=== PATIENT | male | born 1960 | race Caucasian/White ===

== ENCOUNTER → 2021-10-21 11:29 | Outpatient (CLI) | payer BC, SELFPAY ==
--- NOTE | ~2021-10-21 | XR_ITS ---
XR knee LT 3V DATE: 10/21/2021 12:16 INDICATION: Left knee pain TECHNIQUE: AP, lateral, sunrise views COMPARISON: None FINDINGS: There is mild enthesopathy of the patella at the insertions of the quadriceps and patellar tendons. Slight periarticular spurring of the patella. No fracture or dislocation or joint effusion, radiopaque intra-articular loose body or chondrocalcino sis. Joint spaces appear relatively preserved. No fracture or dislocation or joint effusion. No periosteal reaction or bone destruction. IMPRESSION: Mild osteoarthritis Reviewed, dictated and finalized at location A. IMPRESSION: Mild osteoarthritis
--- NOTE | ~2021-10-21 | XR_ITS ---
XR shoulder LT min 2V DATE: 10/21/2021 12:16 INDICATION: Left shoulder pain TECHNIQUE: 4 views COMPARISON: None FINDINGS: There is diffuse osteopenia. No fracture or dislocation, periosteal reaction or bone destruction or abnormal soft tissue calcifica tion of the left shoulder. IMPRESSION: Osteopenia Reviewed, dictated and finalized at location A. IMPRESSION: Osteopenia
== END ==
PROVIDERS: PCP Emergency Medicine; Visit Provider Emergency Medicine
DX: M17.12 Unilateral primary osteoarthritis, left knee (principal); M85.812 Other specified disorders of bone density and structure, left shoulder
CPT/HCPCS: 73030; 73562

== ENCOUNTER 2023-03-02 12:26 | Outpatient (CLI) | payer OTHER, SELFPAY ==
--- NOTE | ~2023-03-02 | US_ITS ---
EXAMINATION:US venous doppler LE RT INDICATION:Right leg pain TECHNIQUE: Multiple grayscale, color flow and Doppler images of the right lower extremity deep venous systems were obtained and reviewed. COMPARISON:No prior studies for comparison. FINDINGS: The common femoral, superficial femoral and popliteal veins demonstrate normal respiratory variation, augmentation and compressibility. Color flow is also seen within the posterior tibial, pe roneal, greater saphenous and profunda veins. There is superficial venous thrombosis of the right les ser saphenous vein. IMPRESSION: 1: No lower extremity deep venous thrombosis. Reviewed, dictated and finalized at location B.
== END 2023-03-02 12:27 | disposition home or self-care (01) ==
PROVIDERS: PCP Emergency Medicine; Visit Provider Emergency Medicine
DX: I82.409 Acute embolism and thrombosis of unspecified deep veins of unspecified lower extremity (principal)
CPT/HCPCS: 93971